=== PATIENT | male | born 1955 | race Two or more races ===

== ENCOUNTER 2018-03-02 10:05 | Emergency (ER) | payer MEDICAID ==
[~2018-03-02] VITALS: Ht 167.6 cm; Wt 94.3 kg
[2018-03-02 12:11] VITALS: BP 112/48
== END 2018-03-02 12:11 | disposition home or self-care (01) ==
LOC: ED 10:05
DX: T24.212A Burn of second degree of left thigh, initial encounter (principal); T24.211A Burn of second degree of right thigh, initial encounter; X17.XXXA Contact with hot engines, machinery and tools, initial encounter; Y93.89 Activity, other specified; Y92.89 Other specified places as the place of occurrence of the external cause; Y99.8 Other external cause status